=== PATIENT | female | born 1995 | race Caucasian/White ===

== ENCOUNTER 2017-04-25 11:55 | Emergency (ER) | payer OTHER ==
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
[2017-04-25 13:05] VITALS: BP 108/77
--- NOTE | 2017-04-25 13:06 | XRAY Report ---
EXAM: LEFT FOOT RADIOGRAPHY EXAM DATE: 04/25/2017 12:29 PM. CLINICAL HISTORY: Pain with ambulation at the base of big toe. COMPARISON: None. TECHNIQUE: 3 views. FINDINGS: Bones: Normal. No fractures or bone lesions. Joints: Normal. No subluxations. Soft Tissues: Normal. No soft tissue swelling. IMPRESSION: Normal foot radiography. [facility] Referring Provider Line: [phone] SITE ID: [id number]
== END 2017-04-25 13:04 | disposition home or self-care (01) ==
LOC: ED 11:55
DX: S90.112A Contusion of left great toe without damage to nail, initial encounter (principal); V89.2XXA Person injured in unspecified motor-vehicle accident, traffic, initial encounter
CPT/HCPCS: 99283

== ENCOUNTER 2017-12-22 12:20 | Emergency (ER) | payer OTHER ==
[2017-12-22 12:25] VITALS: BP 146/95
[2017-12-22 12:50] LABS: BASOPHILS # (AUTO) 0.1 10^3/uL (0.0-0.1); BASOPHILS % (AUTO) 0.9 %; EOSINOPHILS # (AUTO) 0.3 10^3/uL (0.0-0.7); HGB - HEMOGLOBIN 12.8 g/dL (12.0-16.0); LYMPHOCYTES # (AUTO) 2.8 10^3/uL (1.5-3.5); LYMPHOCYTES % (AUTO) 37.4 %; MEAN CORPUSCULAR HEMOGLOBIN 30.7 pg (27.0-31.0); MEAN CORPUSCULAR HGB CONC 34.2 g/dL (32.0-36.0); MEAN CORPUSCULAR VOLUME 89.7 fL (81.0-99.0); MEAN PLATELET VOLUME 9.9 fL (7.9-10.8); MONOCYTES # (AUTO) 0.6 10^3/uL (0.0-1.0); MONOCYTES % (AUTO) 7.6 %; NEUTROPHILS # (AUTO) 3.7 10^3/uL (1.5-6.6); NEUTROPHILS % (AUTO) 50.1 %; PLT - PLATELET COUNT 214 10^3/uL (130-450); RED BLOOD COUNT 4.19 10^6/uL (4.20-5.40); RED CELL DISTRIBUTION WIDTH 12.8 % (12.0-15.0); WHITE BLOOD COUNT 7.4 x10^3/uL (4.8-10.8)
[2017-12-22 13:00] LABS: ALBUMIN 4.8 g/dL (3.2-5.5); ALBUMIN/GLOBULIN RATIO 1.5 (1.0-2.2); BILIRUBIN,TOTAL 0.6 mg/dL (0.2-1.0); CALCIUM 9.1 mg/dL (8.5-10.3); CREATININE 0.9 mg/dL (0.4-1.0)
[2017-12-22 13:04] LABS: BILIRUBIN,URINE NEGATIVE (NEGATIVE); GLUCOSE, URINE (UA) NEGATIVE (NEGATIVE); KETONES,URINE (UA) NEGATIVE (NEGATIVE); LEUKOCYTE ESTERASE, URINE NEGATIVE (NEGATIVE); NITRITE,URINE NEGATIVE (NEGATIVE); OCCULT BLOOD,URINE NEGATIVE (NEGATIVE); PROTEIN,URINE NEGATIVE (NEGATIVE); UROBILINOGEN,URINE 0.2 (NORMAL) E.U./dL (NORMAL)
[2017-12-22 13:06] LABS: CLARITY,URINE CLEAR (CLEAR); HCG UR QUAL NEGATIVE
--- NOTE | 2017-12-22 14:23 | ED Physician Documentation ---
PD HPI ABD PAIN - Stated complaint Stated Complaint: LOWER ABD PX - Chief complaint Chief Complaint: Abd Pain - History obtained from History obtained from: Patient - History of Present Illness Timing - onset: Other (She has had pelvic pain for several weeks now. She saw her doctor and was diagnosed with a 5 x 3 x 2 cm ovarian cyst without torsion and has a pending referral to gynecology next week but the pain is pretty bad despite taking naproxen. Her menses are irregular, she has no concern for STDs.) Review of Systems Constitutional: reports: Reviewed and negative Cardiac: reports: Reviewed and negative Respiratory: reports: Reviewed and negative PD PAST MEDICAL HISTORY - Past Medical History Past Medical History: Yes Endocrine/Autoimmune: HyPOthyroidism [employer]: Ovarian cysts - Past Surgical History Past Surgical History: No - Present Medications Home Medications: Ambulatory Orders Medication Instructions Recorded Confirmed Levothyroxine Sodium [Synthroid] 100 mcg PO DAILY 04/25/17 04/25/17 Tramadol HCl 50 mg PO Q8HR PRN #20 tablet 04/25/17 HYDROcod/ACETAM 5/325 [[place] 5/325] 1 - 2 ea PO Q6H PRN #15 tablet 12/22/17 - Allergies Allergies/Adverse Reactions: Allergies Allergy/AdvReac Type Severity Reaction Status Date / Time No Known Drug Allergies Allergy Verified 04/25/17 12:08 - Social History Does the pt smoke?: No Smoking Status: Never smoker Does the pt drink ETOH?: Yes Does the pt have substance abuse?: No - Immunizations Immunizations are current?: Yes - POLST Patient has POLST: No PD ED PE NORMAL - Vitals Vital signs reviewed: Yes - General General: Alert and oriented X 3, No acute distress - Abdomen Abdomen: Normal bowel sounds, Soft, Non tender - Neuro Neuro: Alert and oriented X 3, Normal speech - Psych Psych: Normal mood, Normal affect Results - Vitals Vitals: Vital Signs - 24 hr 12/22/17 12:23 Temperature 36.6 C Heart Rate 88 Respiratory 18 Rate Blood Pressure 146/95 H O2 Saturation 100 Oxygen O2 Source Room air - Labs Labs: Laboratory Tests 12/22/17 12/22/17 12/22/17 12:43 12:43 Unknown WBC 7.4 RBC 4.19 L Hgb 12.8 Hct 37.6 MCV 89.7 MCH 30.7 MCHC 34.2 RDW 12.8 Plt Count 214 MPV 9.9 Neut # 3.7 Lymph # 2.8 [place] # 0.6 Eos # 0.3 Baso # 0.1 Absolute Nucleated RBC 0.00 Nucleated RBC % 0.0 Sodium 135 Potassium 4.5 Chloride 104 Carbon Dioxide 25 Anion Gap 6.0 BUN 10 Creatinine 0.9 Estimated GFR (MDRD) 77 L Glucose 99 Calcium 9.1 Total Bilirubin 0.6 AST 19 ALT 12 Alkaline Phosphatase 45 Total Protein 8.0 Albumin 4.8 Globulin 3.2 Albumin/Globulin Ratio 1.5 Lipase 13 L Urine Color YELLOW Urine Clarity CLEAR Urine pH 6.0 Ur Specific [place] 1.025 Urine Protein NEGATIVE Urine Glucose (UA) NEGATIVE Urine Ketones NEGATIVE Urine Occult Blood NEGATIVE Urine Nitrite NEGATIVE Urine Bilirubin NEGATIVE Urine Urobilinogen 0.2 (NORMAL) Ur Leukocyte Esterase NEGATIVE Ur Microscopic Review NOT INDICATED Urine Culture Comments NOT INDICATED Urine HCG, Qual NEGATIVE PD MEDICAL DECISION MAKING - ED course ED course: 22-year-old woman with ovarian cysts, known status post outpatient workup presents requesting pain management. She is advised to continue the naproxen. Departure - Departure Disposition: Home, Self Care Clinical Impression: Ovarian cyst Qualifiers: Laterality: right Qualified Code(s): N83.201 - Unspecified ovarian cyst, right side Condition: Good Record reviewed to determine appropriate education?: Yes Instructions: ED Pelvic Pain [facility] Prescriptions: HYDROcod/ACETAM 5/325 [[place] 5/325] 1 - 2 ea PO Q6H PRN #15 tablet PRN Reason: Pain Comments: Call your doctor to arrange a follow-up appointment, make the next available appointment. In the interim, return anytime if worse or if new symptoms develop. Do not drink or drive while taking narcotic pain medication. Note that many narcotic pain relievers also contain Tylenol/acetaminophen. Please ensure that your total dose of acetaminophen from all sources does not exceed 3 g (3000 mg) per day. You may get constipated while on this medication. Take a stool softener such as Colace twice a day while you are on it. Also add an [id number] laxative such as senna or MiraLAX on any day that you do not have a bowel movement. If you received a narcotic pain medication or sedative while in the emergency department, do not drive for the next 24 hours. Your blood pressure was elevated today on check into the emergency department. This does not mean that you have hypertension, it is a common phenomenon to come to the emergency department and have elevated blood pressure. I recommend that you see your primary care physician within the week to have it rechecked when you are feeling better.
== END 2017-12-22 14:37 | disposition home or self-care (01) ==
LOC: ED 12:20
DX: N83.201 Unspecified ovarian cyst, right side (principal); R03.0 Elevated blood-pressure reading, without diagnosis of hypertension; E03.9 Hypothyroidism, unspecified
CPT/HCPCS: 36415; 80053; 81001; 81003; 81025; 83690; 85025; 87086; 99283

== ENCOUNTER 2018-08-29 17:30 | Emergency (ER) | payer OTHER ==
[2018-08-29 18:26] LABS: BASOPHILS # (AUTO) 0.1 10^3/uL (0.0-0.1); BASOPHILS % (AUTO) 0.7 %; EOSINOPHILS # (AUTO) 0.2 10^3/uL (0.0-0.7); HGB - HEMOGLOBIN 13.6 g/dL (12.0-16.0); LYMPHOCYTES # (AUTO) 2.6 10^3/uL (1.5-3.5); LYMPHOCYTES % (AUTO) 33.3 %; MEAN CORPUSCULAR HEMOGLOBIN 31.5 pg (27.0-31.0); MEAN CORPUSCULAR HGB CONC 33.7 g/dL (32.0-36.0); MEAN CORPUSCULAR VOLUME 93.4 fL (81.0-99.0); MEAN PLATELET VOLUME 9.9 fL (7.9-10.8); MONOCYTES # (AUTO) 0.6 10^3/uL (0.0-1.0); MONOCYTES % (AUTO) 7.5 %; NEUTROPHILS # (AUTO) 4.3 10^3/uL (1.5-6.6); NEUTROPHILS % (AUTO) 55.5 %; PLT - PLATELET COUNT 199 10^3/uL (130-450); WHITE BLOOD COUNT 7.8 x10^3/uL (4.8-10.8)
[2018-08-29 18:44] LABS: ALBUMIN 4.6 g/dL (3.2-5.5); ALBUMIN/GLOBULIN RATIO 1.5 (1.0-2.2); BILIRUBIN,TOTAL 0.9 mg/dL (0.2-1.0); CALCIUM 8.9 mg/dL (8.5-10.3); CREATININE 0.9 mg/dL (0.4-1.0); TOTAL PROTEIN 7.7 g/dL (6.7-8.2)
[2018-08-29 19:17] LABS: BILIRUBIN,URINE NEGATIVE (NEGATIVE); GLUCOSE, URINE (UA) NEGATIVE (NEGATIVE); KETONES,URINE (UA) NEGATIVE (NEGATIVE); LEUKOCYTE ESTERASE, URINE NEGATIVE (NEGATIVE); NITRITE,URINE NEGATIVE (NEGATIVE); OCCULT BLOOD,URINE NEGATIVE (NEGATIVE); PH,URINE 5.5 PH (5.0-7.5); PROTEIN,URINE NEGATIVE (NEGATIVE); UROBILINOGEN,URINE 0.2 (NORMAL) E.U./dL (NORMAL)
[2018-08-29 19:18] LABS: CLARITY,URINE CLEAR (CLEAR); HCG UR QUAL NEGATIVE
[2018-08-29] MEDS ORDERED: IBUPROFEN 400 MG TABLET PO STA (21:23)
[2018-08-29] MEDS ORDERED: ACETAMINOPHEN 325 MG TABLET PO STA (21:23)
--- NOTE | 2018-08-29 21:25 | ED Physician Documentation ---
History of Present Illness - Stated complaint Stated Complaint: ABD PX - Chief complaint Chief Complaint: Abd Pain - Additonal information Additional information: hx from pt 23 y/o f hx ovarian cysts s/p surg in March [facility] denies preg LMP early Dec acute onset pelvic pain during intercourse 2 days ao still huts no fever + NV no diarrhea no vag bleed or dc Review of Systems Constitutional: denies: Fever Cardiac: denies: Chest pain / pressure Respiratory: denies: Dyspnea GI: reports: Abdominal Pain, Nausea, Vomiting. denies: Diarrhea : denies: Discharge, Vaginal bleeding, Now EGA PD PAST MEDICAL HISTORY - Past Medical History Endocrine/Autoimmune: HyPOthyroidism [employer]: Ovarian cysts - Past Surgical History Past Surgical History: No - Present Medications Home Medications: Ambulatory Orders Medication Instructions Recorded Confirmed Levothyroxine Sodium [Synthroid] 137 mcg PO DAILY 04/25/17 04/25/17 - Allergies Allergies/Adverse Reactions: Allergies Allergy/AdvReac Type Severity Reaction Status Date / Time amoxicillin [From Augmentin] Allergy Rash Verified 08/29/18 17:50 clavulanic acid Allergy Rash Verified 08/29/18 17:50 [From Augmentin] - Social History Does the pt smoke?: No Smoking Status: Never smoker Does the pt drink ETOH?: Yes Does the pt have substance abuse?: No - Immunizations Immunizations are current?: Yes - POLST Patient has POLST: No PD ED PE NORMAL - Vitals Vital signs reviewed: Yes - Neck Neck: Supple, no meningeal sign - Cardiac Cardiac: RRR - Respiratory Respiratory: No respiratory distress, Clear bilaterally - Abdomen Abdomen: Other (lower abd TTP R > L no rebound ir guarding) - Derm Derm: Normal color - Neuro Neuro: Alert and oriented X 3 Results - Vitals Vitals: Vital Signs - 24 hr 08/29/18 08/29/18 17:47 21:07 Temperature 36.9 C Heart Rate 83 87 Respiratory 16 20 Rate Blood Pressure 139/96 H 143/76 H O2 Saturation 99 100 Oxygen O2 Source Room air - Labs Labs: Laboratory Tests 08/29/18 08/29/18 08/29/18 17:58 18:19 18:19 WBC 7.8 RBC 4.30 Hgb 13.6 Hct 40.2 MCV 93.4 MCH 31.5 H MCHC 33.7 RDW 13.0 Plt Count 199 MPV 9.9 Neut # (Auto) 4.3 Lymph # (Auto) 2.6 [place] # (Auto) 0.6 Eos # (Auto) 0.2 Baso # (Auto) 0.1 Absolute Nucleated RBC 0.00 Nucleated RBC % 0.0 Sodium 136 Potassium 3.8 Chloride 103 Carbon Dioxide 25 Anion Gap 8.0 BUN 20 Creatinine 0.9 Estimated GFR (MDRD) 76 L Glucose 103 H Calcium 8.9 Total Bilirubin 0.9 AST 16 ALT 10 Alkaline Phosphatase 56 Total Protein 7.7 Albumin 4.6 Globulin 3.1 Albumin/Globulin Ratio 1.5 Lipase 22 HCG, Quant Urine Color YELLOW Urine Clarity CLEAR Urine pH 5.5 Ur Specific [place] >=1.030 H Urine Protein NEGATIVE Urine Glucose (UA) NEGATIVE Urine Ketones NEGATIVE Urine Occult Blood NEGATIVE Urine Nitrite NEGATIVE Urine Bilirubin NEGATIVE Urine Urobilinogen 0.2 (NORMAL) Ur Leukocyte Esterase NEGATIVE Ur Microscopic Review NOT INDICATED Urine Culture Comments NOT INDICATED Urine HCG, Qual NEGATIVE 08/29/18 18:19 WBC RBC Hgb Hct MCV MCH MCHC RDW Plt Count MPV Neut # (Auto) Lymph # (Auto) [place] # (Auto) Eos # (Auto) Baso # (Auto) Absolute Nucleated RBC Nucleated RBC % Sodium Potassium Chloride Carbon Dioxide Anion Gap BUN Creatinine Estimated GFR (MDRD) Glucose Calcium Total Bilirubin AST ALT Alkaline Phosphatase Total Protein Albumin Globulin Albumin/Globulin Ratio Lipase HCG, Quant < 0.60 Urine Color Urine Clarity Urine pH Ur Specific [place] Urine Protein Urine Glucose (UA) Urine Ketones Urine Occult Blood Urine Nitrite Urine Bilirubin Urine Urobilinogen Ur Leukocyte Esterase Ur Microscopic Review Urine Culture Comments Urine HCG, Qual - Rads (name of study) pelvic sono Radiology: See rad report (4.9 X 2.9 X 3.3 cm complex cyst R ovary as well as a 3.8 X 2.3 X 2.4 cm simple right ovrian cyst, + blood flow no torsion at time of sono, mild to mid simple FF near R adnexae and posterior cul de sca) Departure - Departure Disposition: 01 Home, Self Care Clinical Impression: Complex cyst of right ovary Condition: Good Instructions: ED Cyst Ovarian Follow-Up: Osmar Cancino ARNP [Primary Care Provider] - Ike Estrada MD [Provider Admit Priv/Credential] - Comments: The ultrasound showed two cysts on the right ovary - both are large but still < 5 cm, one is complex and the other is simple, and there some free fluid around the ovary indicating one of the cysts is leaking You do not need emergent surgery tonight - it is OK for you to go home and take motrin and tylenol for the pain But you do need to follow up with [employer] for close follow up to further evaluate the complex cyst. If at any point the pain become very severe, come back to the ER Forms: Activity restrictions
--- NOTE | 2018-08-29 23:18 | Ultrasound Report ---
Reason: acute lower abd pain after intercourse hx cysts Procedure Date: 08/29/2018 Accession Number: [id number] / [id number] Procedure: US - Pelvic w/Transvag+Doppler Comp CPT Code: FULL RESULT: EXAM: PELVIC ULTRASOUND CLINICAL HISTORY: Acute lower abd pain after intercourse hx cysts. COMPARISON: None. TECHNIQUE: Realtime transabdominal imaging performed to identify the uterus and adnexa and as an overview of other pelvic structures, followed by transvaginal imaging for better assessment of the endometrium and adnexa, with static image documentation. Color flow imaging and Doppler spectral analysis was performed to evaluate blood flow to the ovaries given pelvic pain and clinical concern for ovarian torsion. FINDINGS: Uterus: 8.9 x 3.3 x 5.2 cm, volume 80.3 cc. Anteverted position. Normal overall size and echotexture. Masses: None. Endometrium: 7 mm. Normal. Cervix: Unremarkable. Right Ovary: 6.3 x 5.0 x 4.8 cm, volume 79.4 cc. Corpus luteum cyst in the right ovary measures 4.4 x 2.9 x 3.3 cm. There is a more simpler appearing cyst seen in the right ovary, contains a partial septation but is otherwise simple, measures 3.8 x 2.3 x 2.7 cm. arterial and venous waveform seen within the right ovary. Free fluid is seen in the adnexa. Left Ovary: 2.5 x 1.8 x 3 cm, volume 7.2 cc. Normal echotexture. Arterial and venous blood flow are present. Adnexa unremarkable. Free Fluid: Mild to moderate amount of free fluid seen in the anterior and posterior cul-de-sac as well as the right adnexa, simple mixed with mildly complex fluid. IMPRESSION: 1. Corpus luteum cyst in the right ovary measures 4.4 x 2.9 x 3.3 cm. There is a more simpler appearing cyst seen in the right ovary, contains a partial septation but is otherwise simple, measures 3.8 x 2.3 x 2.7 cm. Arterial and venous waveform seen within the right ovary. Six-week follow-up pelvic ultrasound is recommended to reevaluate to confirm resolution. 2. Mild to moderate amount of free fluid seen in the anterior and posterior cul-de-sac as well as the right adnexa, simple mixed with mildly complex fluid. Findings discussed with Dr. Marsh on 08/29/2018 at 11:35 PM. [facility]
[2018-08-30 00:20] VITALS: BP 110/65
== END 2018-08-30 01:13 | disposition home or self-care (01) ==
LOC: ED 17:30
DX: N83.291 Other ovarian cyst, right side (principal)
CPT/HCPCS: 36415; 76830; 76856; 80053; 81003; 81025; 83690; 84702; 85025; 93975; 99283; A9270; 81001; 87086